=== PATIENT | male | born 1970 | race Caucasian/White ===

== ENCOUNTER 2018-05-15 08:00 | Observation (INO) | payer BC ==
[~2018-05-15] VITALS: Ht 172.7 cm; Wt 89.8 kg
[2018-05-15 08:06] VITALS: Ht 172.7 cm; Wt 89.8 kg
--- NOTE | 2018-05-15 08:24 | NUR ---
PT REPORTING "PANIC ATTACK AGAIN" HE SAID HE HAS AHD NUMBNESS BUE FOR 30 MINS FORM [employer] WHILE AT THE [employer], "MY SAID I FREAKED MYSELF OUT AGAIN" PT IS ALERT AND ORIENTED, BREATHING IS UNLABORED AND EVEN, SLIGHTLY SHALLOW BUT PT IS TALKING IN COMPLETE SENTENCES. PT DOES NOT HAVE FACIAL DROOP OR ARM DRIFT. DR NIXON AT BEDSIDE FOR MSE.
--- NOTE | 2018-05-15 08:36 | NUR ---
PT BACK TO ROOM
--- NOTE | 2018-05-15 08:38 | NUR ---
PT AMBULATED TO ER RESTROOM WITH A STEADY GAIT AND NO ASSISTANCE. PT VERBALIZED UNDERSTANDING OF URINE SPECIMEN COLLECTION.
[2018-05-15 08:54] LABS: microscopic required? NO
[2018-05-15 09:11] LABS: BASOPHIL % 0.4 % (0-2); PLATELET COUNT 277 x10^3mcL (130-400)
[2018-05-15 09:23] LABS: urine erythrocyte NEGATIVE (NEGATIVE)
[2018-05-15 09:36] LABS: CALCIUM 9.1 mg/dL (8.5-10.1); CARBON DIOXIDE 28.4 mmol/L (21-32); CHLORIDE SERUM 101 mmol/L (98-107); GFR1 > 60 mL/min; GLUCOSE SERUM 133 mg/dL (74-106); POTASSIUM SERUM 3.7 mmol/L (3.5-5.1); SODIUM SERUM 138 mmol/L (136-145)
[2018-05-15 09:41] LABS: ALBUMIN 3.9 g/dL (3.4-5.0); ALKALINE PHOSPHATASE 45 U/L (46-116); ALT/SGPT 50 U/L (16-63); AST/SGOT 23 U/L (15-37); BILIRUBIN TOTAL 0.3 mg/dL (0.20-1.00); TOTAL PROTEIN, SERUM 7.8 g/dL (6.4-8.2)
--- NOTE | 2018-05-15 10:28 | NUR ---
DR NIXON AT BEDSIDE AND SPEAKING WITH PT ABOUT POSSIBLE ADMISSION, PT REFUSING TO STAY IN THE HOSPITAL AND ASKING IF HE CAN FOLLOW UP WITH HIS PCP AND NEUROLOGIST AT [facility] IN [place]. PT ASKING DR NIXON TO SPEAK WITH HIS NEUROLOGIST AND OK PER DR NIXON.
[2018-05-15] MEDS ORDERED: CELEXA10 MG PO (11:34)
--- NOTE | 2018-05-15 12:08 | NUR ---
CALLED AND GAVE REPORT TO JOANNE EDGE. ALL QUESTIONS ADDRESSED AT THIS TIME.
[2018-05-15 12:29] VITALS: BP 138/88
[2018-05-15 12:48] LABS: CHOLESTEROL/HDL RATIO 3.9
--- NOTE | 2018-05-15 13:20 | NUR ---
1226: Received patient from the emergency room, vital signs stable, to straddle carrier operator, patient had complained of left arm tingling and tongue numbess prior to arriving to the emergency room, no further symptoms voiced. No complaints of pain at present time. Naila Gonzalez at bedside. Admission assessment completed. last troponin drawn at 0815, < 0.02, heplock right hand #20 gauze, straddle carrier operator #[id number], sinus rhythm 78
[2018-05-15 16:11] VITALS: BP 125/79
--- NOTE | 2018-05-15 19:33 | NUR ---
Obtain specimen for MRSA nares, both nostrils, specimen to be send to the lab.
--- NOTE | 2018-05-15 20:00 | NUR ---
RECEIVED PT IN BED, RESTING QUIETLY. A/O X4. DENIES HEADACHE/DIZZINESS. RESP. EVEN AND UNLABORED.ON ROOM AIR, NO ACUTE DISTRESS NOTED. AFEBRILE AND VITAL SIGNS STABLE.SR ON THE MONITOR, DENIES CHEST PAIN OR ANY DISCOMFORT AT THIS TIME. HL INTACT AND PATENT. AMBULATORY. VOIDING FREELY. CALL LIGHT WITHIN REACH. WILL CONTINUE TO MONITOR.
[2018-05-15 21:14] VITALS: BP 111/72
--- NOTE | 2018-05-15 21:40 | NUR ---
PT DOOZING OFF AND ON, HAD EPISODE OF 2.36 SECONDS OF PAUSE, PT DENIES ANY DISCOMFORT. VITAL SIGNS CHECKED, B/P 108/73, MAP 81 , HR 69 AND 98% 02 SAT ON ROOM AIR.DR DANIEL NOTIFIED. NO NEW ORDER RECEIVED AT THIS TIME.WILL CONTINUE TO MONITOR.
--- NOTE | 2018-05-16 00:50 | NUR ---
EYES CLOSED AT THIS TIME, APPEARS ASLEEP, EASILY AROUSABLE. RESP. EVEN AND UNLABORED AND NO ACUTE DISTRESS NOTED. WILL CONTINUE TO MONITOR.
[2018-05-16 05:40] VITALS: BP 128/84
--- NOTE | 2018-05-16 06:22 | NUR ---
SLEPT MOST OF THE NIGHT. SR ON THE MONITOR, DENIES CP OR ANY DISCOMFORT AT THIS TIME. AFEBRILE AND VITAL SIGNS STABLE. RESP. EVEN AND UNLABORED. NO ACUTE DISTRESS NOTED. KEPT COMFORTABLE. WILL CONTINUE TO MONITOR.
[2018-05-16 06:38] LABS: BASOPHIL % 0.3 % (0-2); PLATELET COUNT 263 x10^3mcL (130-400); RED CELL DISTRIBUTION WIDTH 14.3 % (11.5-14.5)
[2018-05-16 07:18] LABS: CALCIUM 8.9 mg/dL (8.5-10.1); CARBON DIOXIDE 27.3 mmol/L (21-32); CHLORIDE SERUM 103 mmol/L (98-107); GFR1 > 60 mL/min; GLUCOSE SERUM 100 mg/dL (74-106); POTASSIUM SERUM 4.8 mmol/L (3.5-5.1); SODIUM SERUM 140 mmol/L (136-145)
--- NOTE | 2018-05-16 07:31 | NUR ---
RECEIVED IN NO RESP. DISTRESS. AWAKE ALERT AND ORIENTED. VS WNL. NO C/O PAIN OR DISCOMFORT AT THIS TIME. PT DENIES ANY TINGLING SENSATION OR NUMBNESS. NO HEADACHE OR DIZZINESS. CALL LIGHT WITHIN REACH. WILL CONTINUE W/PLAN OF CARE.
[2018-05-16 08:05] VITALS: BP 132/87
--- NOTE | 2018-05-16 08:06 | NUR ---
PT IS VERY ANXIOUS TO GO HOME, STATED HE FEELS BETTER NOW. ENCOURAGED TO WAIT FOR DOCTORS ROUNDING. NO DISTRESS NOTED.
[2018-05-16 09:24] VITALS: BP 132/87
--- NOTE | 2018-05-16 09:43 | NUR ---
PT DC'D HOME IN NO DISTRESS, AWAKE ALERT AND ORIENTED. NO C/O PAIN OR DISCOMFORT. DC INSTRUCTIONS REVIEWED WITH PT AND FAMILY. NO RX GIVEN. HL REMOVED AND SITE/CATH INTACT. PERSONAL BELONGINGS TAKEN HOME.
== END 2018-05-16 09:40 | disposition home or self-care (01) | DRG 880 ==
LOC: ED 08:00 → DU 11:10
PROVIDERS: Emergency Medicine; ADMIT Internal Medicine
DX: F41.9 Anxiety disorder, unspecified (principal); R20.0 Anesthesia of skin; Z89.421 Acquired absence of other right toe(s); Z68.31 Body mass index [BMI] 31.0-31.9, adult
CPT/HCPCS: 82962; G0378; Q0092